=== PATIENT | female | born 1955 | race African-American/Black ===

== ENCOUNTER 2017-09-16 11:02 | Emergency (ER) | payer MEDICARE, OTHER ==
[~2017-09-16] VITALS: Ht 167.6 cm; Wt 82.0 kg
[~2017-09-16 11:02] MED LIST: ASPI81TA82 PO
[2017-09-16 11:12] VITALS: BP 155/85; PULSE 16; PULSE 92; RESP 17; TEMP 98.8; O2SAT 98
== END 2017-09-16 13:37 | disposition left against medical advice (07) ==
LOC: NED 11:02
DX: Z53.21 Procedure and treatment not carried out due to patient leaving prior to being seen by health care provider (principal)
CPT/HCPCS: 99281